=== PATIENT | male | born 1980 | race Caucasian/White ===

== ENCOUNTER 2017-10-26 10:06 | Emergency (ER) | payer OTHER ==
--- NOTE | 2017-10-26 10:12 | EDM.PDOC ---
ED HPI GENERAL MEDICAL PROBLEM - General Chief Complaint: Abdominal Pain Stated Complaint: ABDOMINAL PAIN Time Seen by Provider: 10/26/17 10:11 - History of Present Illness INITIAL COMMENTS - FREE TEXT/NARRATIVE: 36-year-old male presents emergency room with abdominal pain. This started about 45 minutes before arrival sudden onset he has never had pain like this before. The pain is right sided is associated with nausea he's come close to vomiting but none as of yet. The patient has never had pain like this in the past. He has not had any fevers or chills and prior to the onset of this pain felt pretty good. Past medical history is unremarkable he is not on any routine medications Right Abdomen Pain Score (Numeric/FACES): 10 - Related Data Allergies Allergy/AdvReac Type Severity Reaction Status Date / Time No Known Allergies Allergy Verified 10/26/17 10:16 Home Meds: Home Meds Acetaminophen/HYDROcodone [[place] 325-5 MG] 1 - 2 tab PO Q4H PRN #20 tablet 10/26 [Rx] Tamsulosin [Tamsulosin 24 Hr] 0.4 mg PO Q24H #7 cap.er 10/26/17 [Rx] ED ROS GENERAL - Review of Systems Review Of Systems: See Below Constitutional: Denies: Fever, Chills Respiratory: Reports: No Symptoms Cardiovascular: Reports: No Symptoms GI/Abdominal: Reports: Abdominal Pain, Nausea. Denies: Constipation, Diarrhea, Vomiting : Reports: Flank Pain. Denies: Frequency, Hematuria, Incontinence Musculoskeletal: Reports: No Symptoms Neurological: Reports: No Symptoms ED EXAM, GI/ABD - Physical Exam Exam: See Below Exam Limited By: No Limitations General Appearance: Alert, Moderate Distress (From the pain) Head: Atraumatic, Normocephalic Neck: Normal Inspection, Supple, Non-Tender, Full Range of Motion. No: Lymphadenopathy (L), Lymphadenopathy (R) Respiratory/Chest: No Respiratory Distress, Lungs Clear, Normal Breath Sounds Cardiovascular: Regular Rate, Rhythm, No Edema, No Murmur GI/Abdominal Exam: Normal Bowel Sounds, Soft, Other (Getting a right-sided abdominal pain this radiates into his groin. It is not worsened with palpation. No distention or rigidity rebound or guarding) Back Exam: Normal Inspection. No: CVA Tenderness (L), CVA Tenderness (R) Extremities: Normal Inspection, No Pedal Edema Course - Vital Signs Last Recorded V/S: Last Vital Signs Temp 36.1 C 10/26/17 11:23 Pulse 74 10/26/17 11:23 Resp 20 10/26/17 11:23 BP 154/91 H 10/26/17 11:23 Pulse Ox 99 10/26/17 11:23 - Orders/Labs/Meds Orders: Active Orders 24 hr Category Date Time Status Lactated Ringers [Ringers, Lactated] 1,000 ml Med 10/26/17 10:30 Active IV ONETIME Medication Orders Lactated Ringer's (Ringers, Lactated) 1,000 mls @ 125 mls/hr IV ONETIME ONE Stop: 10/26/17 18:29 Last Admin: 10/26/17 10:27 Dose: 125 mls/hr Labs: Laboratory Tests 10/26/17 10/26/17 10/26/17 Range/Units 10:20 10:20 11:35 WBC 6.02 (4.23-9.07) K/mm3 RBC 4.70 (4.63-6.08) M/mm3 Hgb 14.5 (13.7-17.5) gm/L Hct 42.2 (40.1-51.0) % MCV 89.8 (79.0-92.2) fl MCH 30.9 (25.7-32.2) pg MCHC 34.4 (32.2-35.5) g/dl RDW Std Deviation 43.9 (35.1-43.9) fL Plt Count 295 (163-337) K/mm3 MPV 10.1 (9.4-12.3) fl Neutrophils % (Manual) 43 (40-60) % Band Neutrophils % 0 (0-10) % Lymphocytes % (Manual) 45 H (20-40) % Atypical Lymphs % 0 % Monocytes % (Manual) 7 (2-10) % Eosinophils % (Manual) 5 (0.8-7.0) % Basophils % (Manual) 0 L (0.2-1.2) Platelet Estimate Adequate RBC Morph Comment Normal Sodium 140 (136-145) mEq/L Potassium 3.9 (3.5-5.1) mEq/L Chloride 102 (98-107) mEq/L Carbon Dioxide 25 (21-32) mEq/L Anion Gap 16.9 H (5-15) BUN 16 (7-18) mg/dL Creatinine 1.1 (0.7-1.3) mg/dL Est Cr Clr Drug Dosing 102.88 mL/min Estimated GFR (MDRD) > 60 (>60) mL/min BUN/Creatinine Ratio 14.5 (14-18) Glucose 137 H (74-106) mg/dL Calcium 9.9 (8.5-10.1) mg/dL Total Bilirubin 0.7 (0.2-1.0) mg/dL AST 18 (15-37) U/L ALT 35 (16-63) U/L Alkaline Phosphatase 81 (46-116) U/L Total Protein 8.5 H (6.4-8.2) g/dl Albumin 4.0 (3.4-5.0) g/dl Globulin 4.5 gm/dL Albumin/Globulin Ratio 0.9 L (1-2) Urine Color Yellow (Yellow) Urine Appearance Clear (Clear) Urine pH 7.0 (5.0-8.0) Ur Specific [place] 1.025 (1.005-1.030) Urine Protein 1+ H (Negative) Urine Glucose (UA) Negative (Negative) Urine Ketones Negative (Negative) Urine Occult Blood Trace-intact H (Negative) Urine Nitrite Negative (Negative) Urine Bilirubin Negative (Negative) Urine Urobilinogen 0.2 (0.2-1.0) Ur Leukocyte Esterase Negative (Negative) Urine RBC 0-5 (0-5) /hpf Urine WBC 5-10 H (0-5) /hpf Urine WBC Clumps Few (NOT SEEN) /hpf Ur Epithelial Cells 0-5 (0-5) /hpf Ur Squamous Epith Cells 0-5 (0-5) /hpf Urine Bacteria Not seen (FEW) /hpf Urine Mucus Not seen (FEW) /hpf Meds: Medications Generic Name Dose Route Start Last Admin Trade Name Freq PRN Reason Stop Dose Admin Lactated Ringer's 1,000 mls @ 125 mls/hr 10/26/17 10:30 10/26/17 10:27 Ringers, Lactated IV 10/26/17 18:29 125 mls/hr ONETIME ONE Administration Discontinued Medications Generic Name Dose Route Start Last Admin Trade Name Freq PRN Reason Stop Dose Admin Fentanyl 50 mcg 10/26/17 10:21 10/26/17 10:27 Sublimaze IVPUSH 10/26/17 10:22 50 mcg ONETIME ONE Administration Fentanyl 50 mcg 10/26/17 10:57 10/26/17 11:03 Sublimaze IVPUSH 10/26/17 10:58 50 mcg ONETIME ONE Administration Ketorolac Tromethamine 15 mg 10/26/17 11:27 10/26/17 11:32 Toradol IVPUSH 10/26/17 11:28 15 mg ONETIME ONE Administration Ondansetron HCl 4 mg 10/26/17 10:20 10/26/17 10:26 Zofran IVPUSH 10/26/17 10:21 4 mg ONETIME ONE Administration - Re-Assessments/Exams Free Text/Narrative Re-Assessment/Exam: 10/26/17 13:02 His initial exam is consistent with a kidney stone CT was obtained patient has never had problems with kidney stone this showed a distal stone in the right ureter at the UVJ. He had marked dilation of the ureter. Urinalysis is not suggestive of infectious process. Departure - Departure Time of Disposition: 13:03 Disposition: Home, Self-Care 01 Clinical Impression: Kidney stone on right side - Discharge Information Prescriptions: Acetaminophen/HYDROcodone [[place] 325-5 MG] 1 - 2 tab PO Q4H PRN #20 tablet PRN Reason: Abdominal Pain Tamsulosin [Tamsulosin 24 Hr] 0.4 mg PO Q24H #7 cap.er Referrals: Christian Sim MD [Primary Care Provider] - Forms: ED Department Discharge Additional Instructions: Return to emergency room if any questions problems worsening symptoms. Return immediately if he developed fevers chills or any signs of infection Follow-up with Dr. Broussard by the end of this week. Strain your urine to try and capture the stone. He been started on 2 medications the first medication is [place], or hydrocodone take one or 2 every 4-6 hours. Allow 12 hours after using this medication before driving or returning to work. You've also been started on Flomax this is to help you urinary tract relax 0.4 mg daily for 1 week. - My Orders Last 24 Hours: My Active Orders 10/26/17 10:30 Lactated Ringers [Ringers, Lactated] 1,000 ml IV ONETIME - Assessment/Plan Last 24 Hours: My Active Orders 10/26/17 10:30 Lactated Ringers [Ringers, Lactated] 1,000 ml IV ONETIME
[2017-10-26] MEDS ORDERED: Ondansetron 4 MG/2 ML SDV IVPUSH ONE (10:20)
[2017-10-26] MEDS ORDERED: fentaNYL 100 MCG/2 ML SDV IVPUSH ONE ×2 (10:21→10:57)
[2017-10-26] MEDS ORDERED: Lactated Ringers 1,000 ML IV ONE (10:30)
--- NOTE | 2017-10-26 11:10 | CT ---
CT abdomen and pelvis Technique: Multiple axial sections were obtained from the top of the liver inferiorly through the pubic symphysis. Intravenous and oral contrast not utilized. Study has been performed as a ureteral stone protocol. Comparison: No prior CT exam. Findings: Right ureter is prominent in size. Right kidney collecting system is prominent in size. These findings are caused by an obstructing stone located at the UVJ measuring 4.3 mm. No other abnormal calcifications are seen along the course of the ureters. 2 small nonobstructing calculi are seen within the left kidney. Right kidney shows no nonobstructing calculi. Visualized lung bases shows nothing acute. Noncontrast appearance of the liver and spleen appears within normal limits. Adrenal glands are unremarkable. Pancreas appears within normal limits. Gallbladder contains no calcified gallstones. Aorta shows no aneurysmal dilatation. No retroperitoneal adenopathy or mesenteric abnormalities are seen. Appendix is seen which appears normal. No pelvic mass or adenopathy is seen. No free fluid or inflammatory change is seen. Bone window settings were reviewed which shows limbus type vertebra and Schmorl node deformities and mild scattered disc space narrowing which is felt to be developmental. Impression: 1. Obstructing distal right ureteral stone at the UVJ. Stone measures 4.3 mm. 2. 2 small nonobstructing calculi within the left kidney. 3. Other incidental findings as noted above. Diagnostic code #3
[2017-10-26] MEDS ORDERED: Ketorolac 15 MG/ML SDV IVPUSH ONE (11:27)
== END 2017-10-26 13:20 | disposition home or self-care (01) ==
LOC: JD.ED 10:06
DX: N20.2 Calculus of kidney with calculus of ureter (principal)
CPT/HCPCS: 36415; 74176; 80053; 81001; 85025; 96361; 96374; 96375; 96376; 99284; J1885; J2405; J3010; J7120